=== PATIENT | female | born 1970 | race Caucasian/White ===

== ENCOUNTER 2023-11-23 17:06 | Emergency (ER) | payer SELFPAY ==
[2023-11-23 17:09] VITALS: BP 173/80; PULSE 65; RESP 16; TEMP 36.4; O2SAT 100; BMI 17.9
[2023-11-23] MEDS: PROPARACAINE 0.5% OPHTH SOL 1 DROPS EYE-LEFT (19:03)
[2023-11-23] MEDS: FLUORESCEIN 1 MG STRIP EYE-BOTH (19:03)
--- NOTE | 2023-11-23 19:22 | ED_ITS ---
HPI - General Adult General Chief complaint: Eye Problems Stated complaint: Got bleach in [employer] [facility] at Work Time Seen by Provider: 11/23/23 17:44 Source: patient Mode of arrival: Ambulatory History of Present Illness HPI narrative: [age] old female who is here for evaluation of a event that occurred earlier today when she states she was wearing her glasses however she had a couple drops bleach splashed into her right eye. Prior to my evaluation she had a pH performed that was 7. Was irrigated with a L of fluid. She was having some irritation. No vision changes. No other injuries from the event. No prior eye surgeries. Does not wear contact lenses. Related Data Previous Rx's Medication Instructions Recorded polymyxin B sulfate 10,000 2 drp EYE-RIGHT QID 3 days #10 mL 11/23/23 unit-trimethoprim 1 mg/mL eye drops Review of Systems Eyes Eyes: Reports system reviewed and no additional complaints, except as documented Patient History Social History Smoking Status: Current every day smoker Smoking Status: Current every day smoker tobacco type: cigarettes alcohol intake frequency: a few times a week Alcohol type: beer Substance Use Type: does not use Exam Initial Vital Signs Initial Vital Signs: Vital Signs Temperature 97.5 F L 11/23/23 17:09 Pulse Rate 65 11/23/23 17:09 Respiratory Rate 16 11/23/23 17:09 Blood Pressure 173/80 H 11/23/23 17:09 Pulse Oximetry 100 11/23/23 17:09 Oxygen Delivery Method Room Air 11/23/23 17:09 Eyes Other: Fluorescein use. No foreign bodies noted. No ulcerations or abrasions noted. Skin Other: Minimal scared and irritation around the eye most likely from the irrigation Course Orders Ordered: Discontinued Medications Fluorescein Sodium (Fluorescein 1 Mg Strip) 1 mg EYE-BOTH NOW ONE Stop: 11/23/23 19:00 Last Admin: 11/23/23 19:03 Dose: 1 mg Documented By: ADRIANA Proparacaine HCl (Proparacaine 0.5% Ophth Heidi) 1 drops EYE-LEFT NOW ONE Stop: 11/23/23 19:00 Last Admin: 11/23/23 19:03 Dose: 1 drop Documented By: ADRIANA Vital Signs Vital signs: Vital Signs - 8 hr 11/23/23 17:09 11/23/23 19:30 Temperature 97.5 F L Pulse Rate 65 62 Respiratory Rate 16 14 Blood Pressure 173/80 H 193/84 H Pulse Oximetry 100 62 L Oxygen Delivery Method Room Air Room Air Medical Decision Making Lab Data Labs: Point of Care Testing pH,Tear Film,POC Measurement pH 7 Point of care testing: Point of Care Testing pH,Tear Film,POC Measurement pH 7 MDM Narrative Medical decision making narrative: Patient has been irrigated. PH is unremarkable. No signs of corneal abrasions or ulcerations. Visual acuity is noted. Will place on antibiotic drops. States she is allergic to erythromycin. Will discharge patient home with return precautions. She expressed understanding and agreement. Discharge Plan Departure Patient Disposition: Home Clinical Impression: Chemical exposure of eye Activity Restrictions/Additional Instructions: I do recommend that you lemon picker the antibiotic drops tonight and start taking them as directed. You can shower like normal. Return to the emergency department for new or worsening symptoms. Prescriptions: New polymyxin B sulf-trimethoprim 10,000 unit- 1 mg/mL drops 2 drp EYE-RIGHT QID 3 Days Qty: 10 0RF Stand Alone Forms: Patient Portal/API, Work Release Note
[2023-11-23 19:30] VITALS: BP 193/84; PULSE 62; RESP 14; O2SAT 62
== END 2023-11-23 19:33 | disposition home or self-care (01) ==
PROVIDERS: Emergency Provider Emergency Medicine
DX: Z77.098 Contact with and (suspected) exposure to other hazardous, chiefly nonmedicinal, chemicals (principal)
CPT/HCPCS: 99283; 99284

== ENCOUNTER 2024-01-05 19:59 | Emergency (ER) | payer OTHER, MEDICAID, SELFPAY ==
[2024-01-05 20:11] VITALS: BP 166/81; PULSE 73; RESP 16; TEMP 36.3; O2SAT 98; BMI 17.9
--- NOTE | 2024-01-05 20:39 | ED_ITS ---
HPI - Eye Problem General Chief complaint: Eye Problems Stated complaint: rt eye irritation, redness Time Seen by Provider: 01/05/24 20:21 Source: patient Mode of arrival: Ambulatory History of Present Illness HPI Narrative: Patient is a 53-year-old female presenting today with right pruritus and irritation. She says it has been ongoing for last couple of days. She has been itching it quite a lot. She denies any drainage no visual changes. She does wear reading glasses. However today she noticed that it got much redder. No fevers or chills. Related Data Allergies Allergy/AdvReac Type Severity Reaction Status Date / Time erythromycin base AdvReac Intermediate Vomiting Verified 01/05/24 20:13 Patient History Social History Smoking Status: Current every day smoker Smoking Status: Current every day smoker tobacco type: cigarettes alcohol intake frequency: a few times a week Alcohol type: beer Substance Use Type: does not use Exam Initial Vital Signs Initial Vital Signs: Vital Signs Temperature 97.3 F L 01/05/24 20:11 Pulse Rate 73 01/05/24 20:11 Respiratory Rate 16 01/05/24 20:11 Blood Pressure 166/81 H 01/05/24 20:11 Pulse Oximetry 98 01/05/24 20:11 Oxygen Delivery Method Room Air 01/05/24 20:11 GENERAL: Alert pleasant well-appearing 53-year-old female EYE: Extraocular movements intact bilaterally right eye there is a subcon junctival hemorrhage no significant surrounding periorbital edema or erythema she is able to open her eye completely no obvious significant drainage CARDIOVASCULAR: peripheral pulses in tact, cap refill <2 sec RESPIRATORY: No respiratory distress, speaks in full sentences without difficulty EXTREMITIES: Normal range of motion, no clubbing or edema. Neurovascularly intact NEUROLOGICAL: Cranial nerves II through XII grossly intact. Normal gait and speech. SKIN: Warm, dry, no petechiae, no rashes or lesions. Course Orders Ordered: Discontinued Medications Polymyxin/Trimethoprim Sulfate (Polymy B/Trimeth Ophth Prepack) 1 bottle MISC DIRECTED ONE Stop: 01/05/24 20:40 Last Admin: 01/05/24 20:49 Dose: 1 drop Documented By: HARSHAD Vital Signs Vital signs: Vital Signs - 8 hr 01/05/24 20:11 Temperature 97.3 F L Pulse Rate 73 Respiratory Rate 16 Blood Pressure 166/81 H Pulse Oximetry 98 Oxygen Delivery Method Room Air MDM - Eye Problem MDM Narrative Medical decision making narrative: Patient does have pruritus in her right eye but no obvious evidence of conjunctivitis I think more of an allergic conjunctivitis. She is allergic to erythromycin. She has an obvious subconjunctival hemorrhage which will resolve spontaneously. She is given Polytrim Discharge Plan Departure Patient Disposition: Home Clinical Impression: Acute allergic conjunctivitis, Subconjunctival hemorrhage Instructions: Conjunctivitis, DI for Subconjunctival Hemorrhage Activity Restrictions/Additional Instructions: *You have been diagnosed with conjunctivitis *What to do: At this time you do have *Continue to take medications as directed Polytrim drops 1-2 drops in right eye every 3 hours while awake for 7-10 days *Follow up with your primary care provider in 2-3 days or call [phone] *Return to ER if you should have any new, worsening or concerning symptoms Stand Alone Forms: Patient Portal/API
[2024-01-05] MEDS: POLYMY B/TRIMETH OPHTH PREPACK 1 BOTTLE MISC (20:49)
== END 2024-01-05 20:54 | disposition home or self-care (01) ==
PROVIDERS: Emergency Provider Emergency Medicine
DX: H10.11 Acute atopic conjunctivitis, right eye (principal); H11.31 Conjunctival hemorrhage, right eye
CPT/HCPCS: 99281; 99283

== ENCOUNTER → 2024-02-14 08:56 | Outpatient (CLI) | payer OTHER, MEDICAID, SELFPAY ==
[2024-02-14 10:35] LABS: Add Manual Diff / Slide Review NO; Basophils Absolute Auto 100 /uL (0-100); Basophils Percent Auto 1.1 % (0-2); Eosinophils Absolute Auto 0 /uL (0-450); Eosinophils Percent Auto 0.6 % (2-4); Hematocrit 43.5 % (36-46); Hemoglobin 14.7 g/dL (12.0-16.0); Lymphocytes Absolute Auto 1500 /uL (1100-4500); Lymphocytes Percent Auto 23.1 % (25-40); Mean Corpuscular HGB Conc 33.7 % (30-36); Mean Corpuscular Hemoglobin 32.5 PG (26-34); Mean Corpuscular Volume 96.3 fL (80-100); Monocytes Absolute Auto 600 /uL (0-900); Monocytes Percent Auto 8.8 % (3-14); Neutrophils Absolute Auto 4400 /uL (1500-7000); Neutrophils Percent Auto 66.4 % (50-75); Platelet Count 229 X10^3/uL (150-400); Red Blood Cell Count 4.52 X10^6/uL (4.0-5.2); Red Cell Distribution Width 12.8 % (11.6-14.8); White Blood Cell Count 6.6 X10^3/uL (4.5-11.0)
[2024-02-14 11:01] LABS: Alanine Aminotransferase 13 IU/L (<35); Albumin 4.3 g/dL (3.5-5.0); Albumin Globulin Ratio 1.7 (1.0-2.8); Alkaline Phosphatase 62 U/L (38-126); Aspartate Aminotransferase 25 IU/L (14-36); BUN Creatinine Ratio 26.1 (6-22); Bilirubin Total 0.9 mg/dL (0.2-1.3); Blood Urea Nitrogen 18 mg/dL (7-17); Calcium 9.2 mg/dL (8.4-10.2); Carbon Dioxide 25 mmol/L (22-32); Chloride 110 mmol/L (98-107); Cholesterol 187 mg/dL (140-199); Estimated Glomerular Filt Rate > 60 mL/min (>60); Globulin 2.6 g/dL (1.7-4.1); Glucose 86 mg/dL (70-100); HDL Cholesterol 98 mg/dL (40-60); HEMOLYSIS < 15 (0-50); LDL Cholesterol Calculated 76 mg/dL (<100); Potassium 4.3 mmol/L (3.4-5.1); Sodium 140 mmol/L (137-145); Total Protein 6.9 g/dL (6.3-8.2); Triglycerides 67 mg/dL (35-150)
[2024-02-14 11:32] LABS: Creatinine Urine Random 73.37 mg/dL
[2024-02-14 11:40] LABS: Microalbumin Urine Random < 0.6 mg/dL (0-1.6)
== END ==
PROVIDERS: PCP Family Medicine; Referring Provider Family Medicine; Visit Provider Family Medicine
DX: M32.9 Systemic lupus erythematosus, unspecified (principal); I25.10 Atherosclerotic heart disease of native coronary artery without angina pectoris; Z13.6 Encounter for screening for cardiovascular disorders
CPT/HCPCS: 36415; 80053; 80061; 82043; 82570; 85025

== ENCOUNTER → 2024-11-05 10:38 | Outpatient (CLI) | payer OTHER, SELFPAY ==
[2024-11-05 12:40] LABS: Influenza A - CEPHEID Flu A NEGATIVE (NEGATIVE); Influenza B - CEPHEID Flu B NEGATIVE (NEGATIVE); Respiratory Syncytial Virus Negative (Negative)
[2024-11-05 12:41] LABS: COVID-19 CEPHEID 4-PLEX PCR POSITIVE (Negative)
== END ==
LOC: LAB 10:39
PROVIDERS: PCP Family Medicine; Visit Provider Nurse Practitioner Family
DX: R05.1 Acute cough (principal)
CPT/HCPCS: 0241U